=== PATIENT | male | born 1980 | race Caucasian/White ===

== ENCOUNTER → 2016-10-21 | Outpatient (CLI) | payer BC ==
[~2016-10-21] MED LIST: CBCI IV; OXYC-57 PO
--- NOTE | 2016-10-21 10:14 | DIAGNOSTIC IMAGING REPORT ---
CHEST 2 VIEWS ROUTINE CLINICAL HISTORY: R07.89 RIGHT-SIDED CHEST PAIN STATUS POST TRAUMA COMPARISON STUDY: 09/13/2014 FINDINGS: The cardiac and mediastinal contours are normal. There is no evidence of focal pulmonary consolidation. There is no evidence of failure. No pleural effusions are visualized.[ The right-sided PICC catheter has been removed. There is no pneumothorax. IMPRESSION: No active disease in the chest. Electronically signed by: Neville Romano M.D. 10/21/2016 10:13 AM Dictated Date/Time: 10/21/2016 10:12 AM
--- NOTE | 2016-10-21 10:17 | DIAGNOSTIC IMAGING REPORT ---
RIGHT-SIDED RIB SERIES CLINICAL HISTORY: Fall with right chest wall pain. FINDINGS: 5 views from a right-sided rib series are correlated with chest radiographs performed concurrently on 10/21/2016. The lungs are clear as imaged. The heart is normal in size. No right-sided pneumothorax is seen. There is no radiographic evidence of acute/distracted right-sided rib fracture on the rib series. The remainder of the visualized bony thorax appears intact. IMPRESSION: There is no radiographic evidence of right-sided rib fracture as clinically queried. Electronically signed by: Max Monson M.D. 10/21/2016 10:16 AM Dictated Date/Time: 10/21/2016 10:14 AM
== END | disposition home or self-care (01) ==
LOC: C.RAD1850 09:51
PROVIDERS: ATTEND Family Medicine
DX: R07.89 Other chest pain (principal)

== ENCOUNTER → 2017-02-16 | Outpatient (CLI) | payer BC ==
--- NOTE | 2017-02-16 14:52 | DIAGNOSTIC IMAGING REPORT ---
ORBITS FOR MRI HISTORY: 36 years-old Male MRI CLEARANCE clearance for MRI. Possible foreign body. COMPARISON: None available TECHNIQUE: 3 views of the orbits FINDINGS: No opaque foreign body identified. No acute facial bone fracture or dislocation. Paranasal sinuses and mastoid air cells appear generally well aerated. IMPRESSION: No opaque foreign body. The above report was generated using voice recognition software. It may contain grammatical, syntax or spelling errors. Electronically signed by: Girish Lopez M.D. 02/16/2017 2:51 PM Dictated Date/Time: 02/16/2017 2:50 PM
--- NOTE | 2017-02-16 16:02 | DIAGNOSTIC IMAGING REPORT ---
L LOWER EXT JOINT WITHOUT CLINICAL HISTORY: 36 years-old Male presenting with medial left knee pain, no history of trauma. TECHNIQUE: Multisequence, multiplanar MR imaging of the left knee was performed without the use of intravenous contrast. IV contrast: None. COMPARISON: None. FINDINGS: Localizer images: Unremarkable. No bony edema. Articular cartilage normal. Horizontal tear of the posterior horn of the medial meniscus with extension to the tibial articular surface at the posterior horn-body junction. No meniscal extrusion. No disruption of the meniscocapsular ligaments. Lateral meniscus intact. Anterior and posterior cruciate ligaments intact. Quadriceps and patellar tendons intact. Medial and lateral patellar retinacula intact. Medial collateral ligament intact. Lateral collateral ligament complex including the biceps femoris tendon, fibular collateral ligament, popliteus tendon, and iliotibial band intact. Small knee joint effusion. No popliteal cyst. Normal muscle bulk and signal intensity. IMPRESSION: 1. Horizontal tear of the posterior horn of the medial meniscus with extension to the tibial articular surface at the posterior horn-body junction. Electronically signed by: Etienne Lacey M.D. 02/16/2017 4:01 PM Dictated Date/Time: 02/16/2017 3:56 PM
== END | disposition home or self-care (01) ==
LOC: C.MRIBC 14:32
PROVIDERS: ATTEND Orthopaedic Surgery Sports Medicine
DX: S83.242A Other tear of medial meniscus, current injury, left knee, initial encounter (principal); X58.XXXA Exposure to other specified factors, initial encounter